=== PATIENT | male | born 1975 | race Caucasian/White ===

== ENCOUNTER 2018-05-20 18:57 | Observation (INO) ==
--- NOTE | 2018-05-20 19:31 | Emergency Department Note ---
Disposition Clinical Impression: Chest pain Qualifiers: Chest pain type: unspecified Qualified Code(s): R07.9 - Chest pain, unspecified Fatigue Qualifiers: Fatigue type: chronic, unspecified Qualified Code(s): R53.82 - Chronic fatigue, unspecified Disposition: Home, Self-Care Condition: Good Forms: ED Satisfaction Letter, Work/School Release Time of Disposition: 22:01 General Adult HPI - General Chief complaint: ED General Medical Stated complaint: Tired all the time / Frequent Urination / [place] Time Seen by Provider: 05/20/18 19:31 Source: patient Mode of arrival: ambulatory Limitations: no limitations Nursing Notes Reviewed: Yes Vital Signs Reviewed: Yes - History of Present Illness HPI Narrative: Male patient presenting complaints, complaining of increased fatigue. To the point where he swelling asleep while driving. Also increased urination. He denies any burning on urination or foul odor however he states that his pain multiple times throughout the day way more than what he used to. He also complains of a yellowish-white discharge from his penis that happens only in the morning time. States he was diagnosed with prostatitis about a year ago and was not able to finish the antibiotic secondary to them being stolen. He denies any fevers or chills. Patient also reporting that he has a history of sleep apnea. He states he has been using his BiPAP machine and it was recently updated to a newer model however he has not had a repeat sleep test or his settings readjusted since 1989. Patient is an obese male. He states that he frequently is falling asleep and taking naps in a chair. The is at bedside states that he has shortness of breath when he sleeps and he is frequently having periods of apnea. Patient states that he has generally short of breath but does not report any overt shortness of breath at this time. He denies any coughs or colds. He also reports some episodic left-sided chest pain. He states this happens frequently. He is not having any chest pain at this time but he reports his last episode was while he was in the waiting room. He describes it as a fleeting pain in the left side of his chest. He has not tried any medication to make this better. Pain Scale: 0 - Related Data Home Medications Medication Instructions Recorded Confirmed ALPRAZolam [Xanax 1 MG Tablet] 1 mg PO PRN PRN 10/25/17 11/13/17 BuPROPion SR (12 HR) [Wellbutrin 100 mg PO DAILY 04/29/17 05/18/17 SR] FLUoxetine HCl [Prozac] 40 mg PO DAILY 04/29/17 05/18/17 Lisinopril-HCTZ 20-12.5 [Prinzide 1 each PO DAILY 05/08/17 05/18/17 20-12.5] Metoprolol [Lopressor] 100 mg PO DAILY 05/08/17 05/18/17 Previous Rx's Medication Instructions Recorded Ciprofloxacin [Cipro] 500 mg PO BID 21 Days #42 tablet 06/13/17 Allergies Allergy/AdvReac Type Severity Reaction Status Date / Time No Known Allergies Allergy Verified 06/13/17 12:16 All systems ED: reviewed and negative except as stated. Review of Systems: As Per HPI Constitutional: Denies: fever, chills Cardiovascular: Reports: chest pain (not at this time. Has had episodic pain in the left chest. Fleeting. ). Denies: syncope Respiratory: Reports: dyspnea (occasional). Denies: cough Gastrointestinal: Denies: abdominal pain, nausea, vomiting, diarrhea Genitourinary: Reports: urgency (increased), frequency (increased), discharge (first of the moring, yellowish white). Denies: dysuria, hematuria, testicular pain, testicular mass Musculoskeletal: Denies: back pain, neck pain Neurological: Denies: headache, weakness Endocrine: Reports: fatigue Past Medical History - Past Medical History Attestation: Yes The following information was validated with the patient. Source: patient Medical history: Reports: hypertension Psychiatric history: Reports: anxiety, depression - Social History Smoking Status: Current every day smoker Smokeless Tobacco Status: No Alcohol use: Reports: rarely Drug use: Reports: none Physical Exam - General Limitations: no limitations General appearance: alert, in no apparent distress - Head Head exam: atraumatic, normocephalic, normal inspection - Eye Eye exam: Present: normal appearance, PERRL, EOMI - ENT ENT exam: normal exam, normal oropharynx, mucous membranes moist - Neck Neck exam: Present: normal inspection, full ROM, trachea midline - Chest Chest inspection: Present: normal inspection, symmetric chest wall rise - Respiratory Respiratory exam: Present: normal lung sounds bilaterally. Absent: respiratory distress, accessory muscle use - Cardiovascular Cardiovascular exam: Present: regular rate, normal rhythm, normal heart sounds - Abdominal Exam Abdominal exam: Present: soft, Non-Tender. Absent: tenderness, distention, guarding, rebound, rigidity, organomegaly - Extremities Exam Extremities exam: Present: normal inspection, full ROM, normal capillary refill. Absent: tenderness, pedal edema - Back Exam Back exam: Present: normal inspection, full ROM. Absent: tenderness - Neurological Exam Neurological exam: Present: alert, oriented X3 - Psychiatric Psychiatric exam: Present: normal affect, normal mood - Skin Skin exam: Present: warm, dry, intact, normal color Course Course Narrative: Patient is an obese male presenting with occasional left-sided chest pain however his #1 complaint is this fatigue. He states he is frequently falling asleep. He is concerned because whenever he drives he is falling asleep. States this is happened twice today. He is mentating appropriately at this time. Patient's bedside figures to glucose was 104 and he reports he has been drinking several glasses of sweet tea within the past 2 hours. He is also reporting increased urination. We did send for a dirty and clean urine secondary to him stating he has a renal discharge. He does report a fleeting left-sided chest pain. He does have a history of smoking and is obese. There is a family history of heart attacks after the age of 55. We will get a basic lab workup on the patient and a chest x-ray. We will provide him with aspirin at this time. He states he does take lisinopril and has been taking this as he is supposed to recently however he reports that he reveals flea has forgotten several doses. - Reevaluation(s) Reevaluation #1: Patient's vitals are stable. He does have some T-wave inversion in leads 23 and aVF. As well as the V4 V5 and V6. Patient's troponin is negative. He does have a history of high cholesterol heart problems in his family his BMI is greater than 30 any is a smoker. He has a heart score of 4. Patient has been complaining of increased fatigue. We have no previous EKG to compare to. We will admit patient to the hospital for further cardiac evaluation. After discussing further with the patient he is now endorsing exertional symptoms of the chest pain. Patient's chest x-ray was read as a possible infiltrate. However upon evaluating this with the previous chest x-rays and patient's clinical symptoms we will withhold treatment for pneumonia at this time. He does not have a cough. He does report shortness of breath but this is been an ongoing process for several months not an acute process. His lung sounds are clear on evaluation. Time: 21:43 - Consultations Consultation #1: Dr Post accepted Pt in stable condition. Time: 22:09 Vital Signs Temperature 98.0 F 05/20/18 19:01 Pulse Rate 88 05/20/18 19:01 Respiratory Rate 20 05/20/18 19:01 Blood Pressure 166/106 05/20/18 19:01 O2 Sat by Pulse Oximetry 96 05/20/18 19:01 Temperature 98.0 F 05/20/18 19:49 Pulse Rate 88 05/20/18 21:11 Respiratory Rate 24 05/20/18 21:11 Blood Pressure 146/82 05/20/18 21:11 O2 Sat by Pulse Oximetry 97 05/20/18 21:11 Oxygen Delivery Oxygen Delivery Room Air Medical Decision Making - Medical Records Medical records reviewed: Yes I reviewed the patient's medical records. - Lab Data Lab results reviewed: Yes I reviewed the patient's lab results. Result diagrams: 05/20/18 20:08 05/20/18 20:08 Lab Results 05/20/18 05/20/18 05/20/18 Range/Units 19:31 20:08 20:08 WBC 12.3 H (4.3-11.1) K/mcL RBC 5.36 (4.19-5.50) M/mcL Hgb 15.0 (12.9-16.9) g/dL Hct 45.7 (37.5-50.1) % MCV 85.3 (83.0-100.0) fL MCH 28.0 (28.0-33.3) pg MCHC 32.8 (31.6-35.5) g/dL RDW 14.3 (11.5-14.5) % Plt Count 219 (140-400) K/mcL MPV 11.3 (9.4-12.4) fL Immature Gran % 0.8 (0-4) % Seg Neutrophils % 56.1 % Lymphocytes % 32.9 % Monocytes % 7.8 % Eosinophils % 1.5 % Basophils % 0.9 % Neutrophils # 6.9 (1.6-8.9) K/mcL Lymphocytes # 4.0 (0.6-4.6) K/mcL Monocytes # 1.0 (0.0-1.3) K/mcL Eosinophils # 0.2 (0.0-0.6) K/mcL Basophils # 0.1 (0.0-0.2) K/mcL D-Dimer 232 (0-500) ng/mLFEU Sodium (136-145) mEq/L Potassium (3.5-5.1) mEq/L Chloride (98-107) mEq/L Carbon Dioxide (23-29) mEq/L BUN (6-20) mg/dL Creatinine (0.70-1.30) mg/dL Est GFR ( Amer) (> 60) Est GFR (Non-Af Amer) (> 60) BUN/Creatinine Ratio (6-26) Glucose (70-105) mg/dL POC Glucose 104 H (70-99) mg/dL Calculated Osmolality (280-300) Calcium (8.6-10.3) mg/dL Troponin I (< 0.04) ng/mL Urine Color (Yellow) Urine Clarity (Clear) Urine pH (5.0-8.0) pH Units Ur Specific [place] (1.010-1.025) Urine Protein (Neg-Trace) mg/dL Urine Glucose (UA) (Normal) mg/dL Urine Ketones (Negative) mg/dL Urine Blood (Negative) Urine Nitrite (Negative) Urine Bilirubin (Negative) Urine Urobilinogen (Normal) mg/dL Ur Leukocyte Esterase (Negative) Urine Microscopic RBC (0-3) per hpf Urine Microscopic WBC (0-3) per hpf Ur Squamous Epith Cells (None-Few) per lpf Urine Bacteria (None-Few) per hpf Hyaline Casts (None-Few) per lpf Ur Culture Indicated? (NO) 05/20/18 05/20/18 Range/Units 20:08 20:08 WBC (4.3-11.1) K/mcL RBC (4.19-5.50) M/mcL Hgb (12.9-16.9) g/dL Hct (37.5-50.1) % MCV (83.0-100.0) fL MCH (28.0-33.3) pg MCHC (31.6-35.5) g/dL RDW (11.5-14.5) % Plt Count (140-400) K/mcL MPV (9.4-12.4) fL Immature Gran % (0-4) % Seg Neutrophils % % Lymphocytes % % Monocytes % % Eosinophils % % Basophils % % Neutrophils # (1.6-8.9) K/mcL Lymphocytes # (0.6-4.6) K/mcL Monocytes # (0.0-1.3) K/mcL Eosinophils # (0.0-0.6) K/mcL Basophils # (0.0-0.2) K/mcL D-Dimer (0-500) ng/mLFEU Sodium 135 L (136-145) mEq/L Potassium 4.0 (3.5-5.1) mEq/L Chloride 100 (98-107) mEq/L Carbon Dioxide 29 (23-29) mEq/L BUN 15 (6-20) mg/dL Creatinine 0.90 (0.70-1.30) mg/dL Est GFR ( Amer) > 60 (> 60) Est GFR (Non-Af Amer) > 60 (> 60) BUN/Creatinine Ratio 17 (6-26) Glucose 105 (70-105) mg/dL POC Glucose (70-99) mg/dL Calculated Osmolality 281 (280-300) Calcium 9.0 (8.6-10.3) mg/dL Troponin I < 0.03 (< 0.04) ng/mL Urine Color Yellow (Yellow) Urine Clarity Clear (Clear) Urine pH 6.5 (5.0-8.0) pH Units Ur Specific [place] 1.023 (1.010-1.025) Urine Protein Negative (Neg-Trace) mg/dL Urine Glucose (UA) Normal (Normal) mg/dL Urine Ketones Negative (Negative) mg/dL Urine Blood Negative (Negative) Urine Nitrite Negative (Negative) Urine Bilirubin Negative (Negative) Urine Urobilinogen Normal (Normal) mg/dL Ur Leukocyte Esterase Moderate H (Negative) Urine Microscopic RBC 0-3 (0-3) per hpf Urine Microscopic WBC 15-30 H (0-3) per hpf Ur Squamous Epith Cells Many H (None-Few) per lpf Urine Bacteria Few (None-Few) per hpf Hyaline Casts None Seen (None-Few) per lpf Ur Culture Indicated? NO. A (NO) - Radiology Data Radiology results reviewed: Yes I reviewed the patient's radiology results. Chest X-Ray 05/20/18 19:52 IMPRESSION: Middle lobe consolidation may reflect pneumonia. RECOMMENDATION: Radiographic follow-up after treatment and acute symptom resolution. D/ / Joe Shea MD / Joe Shea MD Interpreting Provider: Joe Shea MD When looking at the x-ray compared to previous x-ray patient clinical symptoms do have shortness of breath however there is no cough no productivity. His shortness of breath has been ongoing for several months no acute shortness of breath noted. We will withhold treatment for the possible pneumonia that Was read by the radiologist. - EKG Data EKG #1 EKG attestation: Yes I reviewed and interpreted this EKG. EKG results narrative: Normal sinus rhythm at a rate 87. MN interval is 155. QRS duration is 85. QT is 366. QTC is 441. No signs of acute ischemia. However there are gross T- wave inversions throughout. No signs of a WPW or Brugada. Heart Score - Score History: Moderately Suspicious EKG: Non Specific repolarisation Disturbance Age: Less than 45 Risk Factors: Equal/Greater than 3 risk factor or history of atherosclerotic disease Troponin: Less than normal limit HEART Score Total: 4
--- NOTE | 2018-05-20 19:44 | Emergency Department Note ---
Disposition Clinical Impression: Chest pain, Fatigue Disposition: Home, Self-Care Condition: Good General Adult HPI - General Chief complaint: ED General Medical Stated complaint: Tired all the time / Frequent Urination / [place] Time Seen by Provider: 05/20/18 19:31 - History of Present Illness Pain Scale: 0 - Related Data Home Medications Medication Instructions Recorded Confirmed ALPRAZolam [Xanax 1 MG Tablet] 1 mg PO PRN PRN 04/29/17 05/20/18 BuPROPion SR (12 HR) [Wellbutrin 200 mg PO DAILY 04/29/17 05/18/17 SR] FLUoxetine HCl [Prozac] 40 mg PO DAILY 04/29/17 05/20/18 RX: Lisinopril [Zestril] 20 mg PO BID 05/20/18 Allergies Allergy/AdvReac Type Severity Reaction Status Date / Time No Known Allergies Allergy Verified 06/13/17 12:16 Past Medical History - Past Medical History Medical history: Reports: hypertension Psychiatric history: Reports: anxiety, depression - Social History Smoking Status: Current every day smoker Smokeless Tobacco Status: No Alcohol use: Reports: rarely Drug use: Reports: none Course Vital Signs Temperature 98.0 F 05/20/18 19:01 Pulse Rate 88 05/20/18 19:01 Respiratory Rate 20 05/20/18 19:01 Blood Pressure 166/106 05/20/18 19:01 O2 Sat by Pulse Oximetry 96 05/20/18 19:01 Temperature 98 F 05/21/18 03:14 Pulse Rate 70 05/21/18 03:14 Respiratory Rate 20 05/21/18 04:28 Blood Pressure 130/84 05/21/18 03:14 O2 Sat by Pulse Oximetry 96 05/21/18 04:28 Oxygen Delivery Oxygen Delivery Room Air Medical Decision Making - Lab Data Result diagrams: 05/21/18 03:24 05/21/18 03:24 Lab Results 05/20/18 05/20/18 05/20/18 Range/Units 19:31 20:08 20:08 WBC 12.3 H (4.3-11.1) K/mcL RBC 5.36 (4.19-5.50) M/mcL Hgb 15.0 (12.9-16.9) g/dL Hct 45.7 (37.5-50.1) % MCV 85.3 (83.0-100.0) fL MCH 28.0 (28.0-33.3) pg MCHC 32.8 (31.6-35.5) g/dL RDW 14.3 (11.5-14.5) % Plt Count 219 (140-400) K/mcL MPV 11.3 (9.4-12.4) fL Immature Gran % 0.8 (0-4) % Seg Neutrophils % 56.1 % Lymphocytes % 32.9 % Monocytes % 7.8 % Eosinophils % 1.5 % Basophils % 0.9 % Neutrophils # 6.9 (1.6-8.9) K/mcL Lymphocytes # 4.0 (0.6-4.6) K/mcL Monocytes # 1.0 (0.0-1.3) K/mcL Eosinophils # 0.2 (0.0-0.6) K/mcL Basophils # 0.1 (0.0-0.2) K/mcL D-Dimer 232 (0-500) ng/mLFEU Sodium (136-145) mEq/L Potassium (3.5-5.1) mEq/L Chloride (98-107) mEq/L Carbon Dioxide (23-29) mEq/L BUN (6-20) mg/dL Creatinine (0.70-1.30) mg/dL Est GFR ( Amer) (> 60) Est GFR (Non-Af Amer) (> 60) BUN/Creatinine Ratio (6-26) Glucose (70-105) mg/dL POC Glucose 104 H (70-99) mg/dL Calculated Osmolality (280-300) Calcium (8.6-10.3) mg/dL Troponin I (< 0.04) ng/mL Urine Color (Yellow) Urine Clarity (Clear) Urine pH (5.0-8.0) pH Units Ur Specific [place] (1.010-1.025) Urine Protein (Neg-Trace) mg/dL Urine Glucose (UA) (Normal) mg/dL Urine Ketones (Negative) mg/dL Urine Blood (Negative) Urine Nitrite (Negative) Urine Bilirubin (Negative) Urine Urobilinogen (Normal) mg/dL Ur Leukocyte Esterase (Negative) Urine Microscopic RBC (0-3) per hpf Urine Microscopic WBC (0-3) per hpf Ur Squamous Epith Cells (None-Few) per lpf Urine Bacteria (None-Few) per hpf Hyaline Casts (None-Few) per lpf Ur Culture Indicated? (NO) Ur C. trach DNA (PCR) (Not Detect) U N.gonorrhoeae DNA PCR (Not Detect) 05/20/18 05/20/18 05/20/18 Range/Units 20:08 20:08 20:08 WBC (4.3-11.1) K/mcL RBC (4.19-5.50) M/mcL Hgb (12.9-16.9) g/dL Hct (37.5-50.1) % MCV (83.0-100.0) fL MCH (28.0-33.3) pg MCHC (31.6-35.5) g/dL RDW (11.5-14.5) % Plt Count (140-400) K/mcL MPV (9.4-12.4) fL Immature Gran % (0-4) % Seg Neutrophils % % Lymphocytes % % Monocytes % % Eosinophils % % Basophils % % Neutrophils # (1.6-8.9) K/mcL Lymphocytes # (0.6-4.6) K/mcL Monocytes # (0.0-1.3) K/mcL Eosinophils # (0.0-0.6) K/mcL Basophils # (0.0-0.2) K/mcL D-Dimer (0-500) ng/mLFEU Sodium 135 L (136-145) mEq/L Potassium 4.0 (3.5-5.1) mEq/L Chloride 100 (98-107) mEq/L Carbon Dioxide 29 (23-29) mEq/L BUN 15 (6-20) mg/dL Creatinine 0.90 (0.70-1.30) mg/dL Est GFR ( Amer) > 60 (> 60) Est GFR (Non-Af Amer) > 60 (> 60) BUN/Creatinine Ratio 17 (6-26) Glucose 105 (70-105) mg/dL POC Glucose (70-99) mg/dL Calculated Osmolality 281 (280-300) Calcium 9.0 (8.6-10.3) mg/dL Troponin I < 0.03 (< 0.04) ng/mL Urine Color Yellow (Yellow) Urine Clarity Clear (Clear) Urine pH 6.5 (5.0-8.0) pH Units Ur Specific [place] 1.023 (1.010-1.025) Urine Protein Negative (Neg-Trace) mg/dL Urine Glucose (UA) Normal (Normal) mg/dL Urine Ketones Negative (Negative) mg/dL Urine Blood Negative (Negative) Urine Nitrite Negative (Negative) Urine Bilirubin Negative (Negative) Urine Urobilinogen Normal (Normal) mg/dL Ur Leukocyte Esterase Moderate H (Negative) Urine Microscopic RBC 0-3 (0-3) per hpf Urine Microscopic WBC 15-30 H (0-3) per hpf Ur Squamous Epith Cells Many H (None-Few) per lpf Urine Bacteria Few (None-Few) per hpf Hyaline Casts None Seen (None-Few) per lpf Ur Culture Indicated? NO. A (NO) Ur C. trach DNA (PCR) NOT DETECTED (Not Detect) U N.gonorrhoeae DNA PCR NOT DETECTED (Not Detect) Attestation Statement - Attestation Attestation: Resident Attestation: I examined this patient and my medical decision making was reviewed with the Resident Physician. I agree with the documented findings, disposition and treatment plan as described except to the extent set forth below. We independently had [id number] contact with the patient. Patient seen with Dr. Ralph. Please see her note for further details and disposition. 42-year-old female with significant sleep apnea and CPAP at home presented today for evaluation of chest pain as well as weakness and fatigue. Patient has been falling asleep at home and while driving despite sleeping well at home. Patient has been experiencing left-sided chest pain that radiates to the back. Patient was initially seen several weeks ago and diagnosed with musculoskeletal etiology. Patient's pain is worse with exertion. Patient has takes breaks secondary to alleviate the pain. Multiple risk factors including strong family history, smoking, hypertension, obesity. Regular rate and rhythm, clear to auscultation bilaterally, abdomen soft nontender to palpation without guarding or rebound. EKG shows significant changes including mild depressions inferiorly as well as T-wave inversions inferior and precordial lead. Patient not having active chest pain. Aspirin given. Patient will be admitted for further evaluation of his chest pain. Chest x-ray shows concern for a possible middle lobe pneumonia. Patient does not clinically fit this picture he has not had significant cough or sputum production. We will discuss this with the hospitalist.
[2018-05-20] MEDS ORDERED: Aspirin 81 MG TAB.CHEW PO ONE (19:51)
[2018-05-20 20:40] LABS: Basophils # 0.1 K/mcL (0.0-0.2); Basophils % 0.9 %; Bilirubin,Urine Negative (Negative); Blood,Urine Negative (Negative); Clarity,Urine Clear (Clear); Color,Urine Yellow (Yellow); Eosinophils # 0.2 K/mcL (0.0-0.6); Eosinophils % 1.5 %; Glucose,Urine (UA) Normal (Normal); Hematocrit 45.7 % (37.5-50.1); Immature Granulocytes % 0.8 % (0-4); Ketones,Urine Negative (Negative); Leukocyte Esterase,Urine Moderate (Negative); Lymphocytes % 32.9 %; Mean Corpuscular HGB Conc 32.8 g/dL (31.6-35.5); Mean Corpuscular Volume 85.3 fL (83.0-100.0); Mean Platelet Volume 11.3 fL (9.4-12.4); Monocytes % 7.8 %; Neutrophils # 6.9 K/mcL (1.6-8.9); Nitrite,Urine Negative (Negative); PH,Urine 6.5 pH Units (5.0-8.0); Platelet Count 219 K/mcL (140-400); Protein,Urine Negative (Neg-Trace); Red Blood Count 5.36 M/mcL (4.19-5.50); Red Cell Distribution Width 14.3 % (11.5-14.5); Segmented Neutrophils % 56.1 %; Specific Gravity,Urine 1.023 (1.010-1.025); Urobilinogen,Urine Normal (Normal)
[2018-05-20 20:51] LABS: Hyaline Casts,Urine None Seen per lpf (None-Few); RBC,Urine 0-3 per hpf (0-3); Squamous Epithelial Cell,Urine Many per lpf (None-Few)
[2018-05-20 21:00] LABS: BUN/Creatinine Ratio 17 (6-26); Blood Urea Nitrogen 15 mg/dL (6-20); Carbon Dioxide 29 mEq/L (23-29); Chloride 100 mEq/L (98-107); Glucose 105 mg/dL (70-105); Osmolality,Calculated 281 (280-300); Sodium 135 mEq/L (136-145); eGFR For Non-African Americans > 60 (> 60)
[2018-05-20 21:01] LABS: Troponin I < 0.03 ng/mL (< 0.04)
[2018-05-20 21:24] LABS: WBC,Urine 15-30 per hpf (0-3)
[2018-05-20 21:25] LABS: Bacteria,Urine Few per hpf (None-Few)
[2018-05-20 22:12] LABS: Chlamydia Trachomatis DNA Ur NOT DETECTED (Not Detect)
--- NOTE | 2018-05-20 23:03 | Internal Med History&Physical ---
Date of Encounter: 05/20/18 Time of Encounter: 23:01 Internal Medicine - H&P: HPI Chief complaint: Fatigue Admitted From: Emergency Dept Plans for Post Hospital Care: Home History of present illness: Mr. Mckinley is a 42 year old male with history of hypertension, sleep apnea on CPAP, obesity, chronic smoking history history of depression who presents with generalized fatigue. He has a constellation of complaints as well including increased urination. He also says there is yellowish-white discharge from his penis in the morning. Says he was diagnosed with prostatitis by someone in the outpatient setting and finished abx and all his other symptoms regarding dysuria, burning sensation had resolved and the only thing left is the discharge. He was ruled out for STDs. No fever, chills, dysuria, or burning sensation with urination. He is sleepy all day but is compliant with bipapa for his ANOOP. Has not had a sleep study since 2001. He reports shortness of breath. No cough. Reports episodic left sided chest pain. Mostly with exertion. Happens about once a week and mostly when he is at work exerting himself. He had one earlier in the ED waiting room but went away on its own. EKG done in [facility] ED showed T wave inversions in leads II, II, aVF, V4, 5, and 6. Trops were negative. CXR showed possible infiltrate but those were present on previous CXR. He does have shortness of breath at times but no cough and no fever. Labs showed mildly elevated wbc count. given patient's reported chest pain, EKG sloan es, and risk factors of smoking, obesity, HTN, and family history, it was decided that he gets admitted for further cardiac evaluation. Denies headache, fever, chills, nausea, vomiting, blurry vision, abdominal pain, diarrhea, constipation, or neurological symptoms. Past Med Surg Social Fam HX - Past Medical History Medical history: hypertension Additional medical history: sleep apnea bi pap Psychiatric history: anxiety, depression - Past Surgical History Additional surgical history: umbilical hernia repair - Social History Smoking Status: Current every day smoker Smokeless Tobacco Status: No Alcohol use: rarely Drug use: none - Family History Brother Hx Family Cardiac Disorders: Yes (aortic dissection) Hx Family Endocrine Disorder: Yes (DM) Internal Medicine - H&P: Meds ALPRAZolam [Xanax 1 MG Tablet] 1 mg PO PRN PRN 04/29/17 [History] BuPROPion SR (12 HR) [Wellbutrin SR] 200 mg PO DAILY 04/29/17 [History] FLUoxetine HCl [Prozac] 40 mg PO DAILY 04/29/17 [History] Lisinopril [Zestril] 20 mg PO BID 05/20/18 [History] Allergy/AdvReac Type Severity Reaction Status Date / Time No Known Allergies Allergy Verified 06/13/17 12:16 All Systems PM: A 10-system review of systems was performed and is negative for pertinent findings except as documented above in the HPI. Review of systems: All systems reviewed are negative except as mentioned above - Constitutional Vitals: Temp Pulse Resp BP Pulse Ox 98.0 F 73 20 131/81 98 05/20/18 19:49 05/20/18 22:00 05/20/18 22:59 05/20/18 22:59 05/20/18 22:00 Exam: GEN: NAD HEENT: AT, NC, No cyanosis, oral mucosa is moist, No JVD Lymphatics: No lymphadenoapthy Eyes: Extrocular muscles intact, anicteric CVS:RRR. S1, S2, No m/r/g RESP: CTAB ABD: Soft, NT, ND, +BS EXT: No edema, No rashes, 2+ DP NEURO: Nonfocal, CN II-XII intact, No focal motor or sensory deficits Psych: Cooperative, Not anxious or depressed Internal Med - H&P Results - Labs CBC & Chem 7: 05/20/18 20:08 05/20/18 20:08 Labs: Short CBC 05/20/18 Range/Units 20:08 WBC 12.3 H (4.3-11.1) K/mcL Hgb 15.0 (12.9-16.9) g/dL Hct 45.7 (37.5-50.1) % Plt Count 219 (140-400) K/mcL Neutrophils # 6.9 (1.6-8.9) K/mcL BMP 05/20/18 20:08 Sodium 135 L Potassium 4.0 Chloride 100 Carbon Dioxide 29 BUN 15 Creatinine 0.90 Glucose 105 Calcium 9.0 Cardiac Enzymes 05/20/18 Range/Units 20:08 Troponin I < 0.03 (< 0.04) ng/mL Urine 05/20/18 Range/Units 20:08 Urine Color Yellow (Yellow) Urine Clarity Clear (Clear) Urine pH 6.5 (5.0-8.0) pH Units Ur Specific [place] 1.023 (1.010-1.025) Urine Protein Negative (Neg-Trace) mg/dL Urine Glucose (UA) Normal (Normal) mg/dL - Impressions ITS Impressions Chest X-Ray 05/20/18 19:52 IMPRESSION: Middle lobe consolidation may reflect pneumonia. RECOMMENDATION: Radiographic follow-up after treatment and acute symptom resolution. D/ / Joe Shea MD / Joe Shea MD Interpreting Provider: Joe Shea MD - Assessment and plan (1) Abnormal EKG Current Visit: Yes Status: Acute Assessment and plan: We will trend cardiac enzymes. We will put the patient on telemetry. Check an echocardiogram. We will have the patient undergo a stress test in the morning. May need a cardiology consult. Check lipid panel and A1c. (2) Chest pain Current Visit: Yes Status: Acute Assessment and plan: Even aspirin in the ED. We will check lipid panel and A1c. Assessment and plan as above. Qualifiers: Chest pain type: unspecified Qualified Code(s): R07.9 - Chest pain, unspecified (3) Pneumonia Current Visit: Yes Status: Acute Assessment and plan: Only symptoms are shortness of breath and an infiltrate on chest x-ray. Does have mild elevated white count. Not very convincing convincing but given her overall presentation we will put him on oral Levaquin and possibly chemotherapy for from 5 days. We will check urine strep and Legionella. Check respiratory panel. Qualifiers: Pneumonia type: due to unspecified organism Laterality: unspecified laterality Lung location: unspecified part of lung Qualified Code(s): J18.9 - Pneumonia, unspecified organism (4) Fatigue Current Visit: Yes Status: Acute Assessment and plan: Unclear etiology. We will check TSH. Patient may need to have another sleep study and outpatient setting. His last one was in 2001. We will rule out any cardiac related issues causing this. Possibly some pneumonia may be the cause as well. Qualifiers: Fatigue type: unspecified Qualified Code(s): R53.83 - Other fatigue (5) Hypertension Current Visit: Yes Status: Acute Assessment and plan: Resume home meds Qualifiers: Hypertension type: essential hypertension Qualified Code(s): I10 - Essential (primary) hypertension (6) Depression Current Visit: Yes Status: Acute Assessment and plan: Resume home meds Qualifiers: Depression Type: unspecified Qualified Code(s): F32.9 - Major depressive disorder, single episode, unspecified (7) ANOOP (obstructive sleep apnea) Current Visit: Yes Status: Acute Assessment and plan: Continue with home BiPAP. (8) Elevated glucose Current Visit: Yes Status: Acute Assessment and plan: Check A1c. Glucose 104 and BMP. (9) DVT prophylaxis Current Visit: Yes Status: Acute Assessment and plan: Heparin subcutaneous - Time Spent With Patient Total time spent is greater than 50% in coordination of care (as documented) at patient's floor/unit and/or counseling patient:
[2018-05-20] MEDS ORDERED: ALPRAZolam 1 MG TABLET PO PRN (23:23)
[2018-05-21] MEDS: levoFLOXacin 750 MG TABLET PO SCH ×2 (00:30→09:49)
[2018-05-21 03:51] LABS: Basophils # 0.1 K/mcL (0.0-0.2); Basophils % 0.9 %; Eosinophils # 0.2 K/mcL (0.0-0.6); Eosinophils % 1.6 %; Hematocrit 44.8 % (37.5-50.1); Hemoglobin 14.2 g/dL (12.9-16.9); Immature Granulocytes % 0.9 % (0-4); Lymphocytes # 4.1 K/mcL (0.6-4.6); Lymphocytes % 37.1 %; Mean Corpuscular HGB Conc 31.7 g/dL (31.6-35.5); Mean Corpuscular Hemoglobin 27.5 pg (28.0-33.3); Mean Corpuscular Volume 86.7 fL (83.0-100.0); Mean Platelet Volume 11.3 fL (9.4-12.4); Monocytes % 9.5 %; Neutrophils # 5.5 K/mcL (1.6-8.9); Platelet Count 187 K/mcL (140-400); Red Blood Count 5.17 M/mcL (4.19-5.50); Red Cell Distribution Width 14.1 % (11.5-14.5)
[2018-05-21 04:20] LABS: BUN/Creatinine Ratio 16 (6-26); Blood Urea Nitrogen 15 mg/dL (6-20); Calcium 8.5 mg/dL (8.6-10.3); Carbon Dioxide 29 mEq/L (23-29); Chloride 102 mEq/L (98-107); Cholesterol 104 mg/dL (< 200); Glucose 123 mg/dL (70-105); HDL Cholesterol 33 mg/dL (40-59); Magnesium 2.2 mg/dL (1.6-2.6); Osmolality,Calculated 286 (280-300); Potassium 3.6 mEq/L (3.5-5.1); Sodium 137 mEq/L (136-145); Triglycerides 162 mg/dL (< 150); eGFR For Non-African Americans > 60 (> 60)
[2018-05-21 04:21] LABS: Chol/HDL Ratio 3.2 (0-4.9); LDL Cholesterol,Calculated 39 mg/dL (0-99)
[2018-05-21 04:29] LABS: Thyroid Stimulating Hormone 1.403 mcIU/mL (0.340-5.600)
[2018-05-21] MEDS ORDERED: Regadenoson 0.4 MG/5 ML SYRINGE IVP ONE (05:39)
[2018-05-21 08:53] LABS: Estimated Average Glucose 148 mg/dl; Hemoglobin A1C 6.8 %
[2018-05-21] MEDS ORDERED: Perflutren Lipid Microsphere 1.3 ML in 0.9 % Sodium Chloride 8.7 ML IVP ONE (09:11)
[2018-05-21] MEDS: FLUoxetine 20 MG CAPSULE PO SCH (09:49)
[2018-05-21] MEDS: Nicotine 21 MG PATCH.TD24 TD SCH (09:49)
[2018-05-21] MEDS: Lisinopril 20 MG TABLET PO SCH ×2 (11:25→20:33)
[2018-05-21] MEDS: BuPROPion SR (12 HR) 100 MG TABLET PO SCH (11:25)
--- NOTE | 2018-05-21 12:02 | Internal Med Progress Note ---
Hospitalist Progress Note - Encounter Date of Encounter: 05/21/18 Time of Encounter: 11:58 - Subjective Interval History: Mr. Mckinley is a 42 year old male with history of hypertension, sleep apnea on CPAP, obesity, chronic smoking history and depression pt presented to ER with shortness of breath, Left chest wall pain and generalized fatigue. EKG done in [facility] ED showed T wave inversions in leads II, II, aVF, V4, 5, and 6. Trops were negative. CXR showed possible infiltrate but those were present on previous CXR. He does have shortness of breath at times but no cough and no fever. Pt still c/o mild SOB and ACUNA. Denied any active CP now. - Exam Vitals: Temp Pulse Resp BP Pulse Ox 97.9 F 78 18 125/81 94 05/21/18 11:52 05/21/18 11:52 05/21/18 11:52 05/21/18 11:52 05/21/18 11:52 Exam: Gen: Alert, awake, Oriented to time,place and person Chest: Diminished breath sounds B/L, No wheezing, No crackles, No rales Heart: S1S2+ RRR No murmurs Abd: Soft, NT, BS +, No organomegaly Ext: trace edema, pulses are palpable, No calf tenderness Neuro : Benign findings Skin: No rash. - Assessment and Plan (1) Chest pain Current Visit: Yes Status: Acute Assessment and Plan: So far negative troponin with EKG changes , severe ANOOP and with multiple risk factors he is high risk for ACS scheduled for stress test -- needed 2 days test cont ASA + Nitro reviewed echocardiogram which showed preserved LVEF and indeterminate a diastolic dysfunction (2) Abnormal EKG Current Visit: Yes Status: Acute Assessment and Plan: Follow-up on stress test (3) Acute diastolic (congestive) heart failure Current Visit: Yes Status: Acute Assessment and Plan: He does have mild exacerbation started him on gentle IV diuresis on Lasix 20mg IV BID continue close monitoring reviewed echocardiogram which showed preserved LVEF and indeterminate a diastolic dysfunction (4) Fatigue Current Visit: Yes Status: Acute Assessment and Plan: Due to sleep apnea he did mention his CPAP at home might not be working well does need outpatient sleep study again (5) Hypertension Current Visit: Yes Status: Acute Assessment and Plan: Resume home meds (6) Depression Current Visit: Yes Status: Acute Assessment and Plan: Resume home meds (7) ANOOP (obstructive sleep apnea) Current Visit: Yes Status: Acute Assessment and Plan: on CPAP (8) DVT prophylaxis Current Visit: Yes Status: Acute Assessment and Plan: Heparin subcutaneous (9) Elevated glucose Current Visit: Yes Status: Acute Assessment and Plan: His Hba1C 6.8 diet modification and lifestyle changes (10) Pneumonia Current Visit: Yes Status: Acute Assessment and Plan: On prophylactic antibiotic levofloxacin - Time Spent with Patient Total time spent is greater than 50% in coordination of care (as documented) at patient's floor/unit and/or counseling patient: Internal Medicine: Result - Labs CBC & Chem 7: 05/21/18 03:24 05/21/18 03:24 Labs: Short CBC 05/20/18 05/21/18 Range/Units 20:08 03:24 WBC 12.3 H 10.9 (4.3-11.1) K/mcL Hgb 15.0 14.2 (12.9-16.9) g/dL Hct 45.7 44.8 (37.5-50.1) % Plt Count 219 187 (140-400) K/mcL Neutrophils # 6.9 5.5 (1.6-8.9) K/mcL BMP 05/20/18 05/21/18 20:08 03:24 Sodium 135 L 137 Potassium 4.0 3.6 Chloride 100 102 Carbon Dioxide 29 29 BUN 15 15 Creatinine 0.90 0.93 Glucose 105 123 H Calcium 9.0 8.5 L Cardiac Enzymes 05/20/18 05/21/18 Range/Units 20:08 03:24 Troponin I < 0.03 < 0.03 (< 0.04) ng/mL Urine 05/20/18 Range/Units 20:08 Urine Color Yellow (Yellow) Urine Clarity Clear (Clear) Urine pH 6.5 (5.0-8.0) pH Units Ur Specific [place] 1.023 (1.010-1.025) Urine Protein Negative (Neg-Trace) mg/dL Urine Glucose (UA) Normal (Normal) mg/dL - ABG Interpretation ABG results: PT/INR, D-dimer D-Dimer 232 ng/mLFEU (0-500) 05/20/18 20:08 - Impressions Impressions Chest X-Ray 05/20/18 19:52 IMPRESSION: Middle lobe consolidation may reflect pneumonia. RECOMMENDATION: Radiographic follow-up after treatment and acute symptom resolution. D/ / Joe Shea MD / Joe Shea MD Interpreting Provider: Joe Shea MD Echocardiogram 05/21/18 07:00 Impressions: LVEF 60%. Indeterminate diastolic function. Definity echo contrast was used. Normal right ventricular structure and function. No significant valvular dysfunction. No pulmonary hypertension based on TR signal obtained. Pleural effusion is not appreciated on this study. Left Ventricular Wall Motion: Rest Echo Findings All wall segments showed normal motion. Findings: Study Quality * Technically adequate exam. ECG Findings * Normal sinus rhythm. Left Ventricle * LVEF 60%. * Normal LV chamber size, wall thickness and function. * Indeterminate diastolic function. * Definity echo contrast was used. Right Ventricle * Normal right ventricular structure and function. Left Atrium * Normal left atrial size. Right Atrium * Normal right atrial size. Aortic Valve * Aortic valve not well visualized. * No aortic regurgitation. * No aortic stenosis. Mitral Valve * No mitral regurgitation. * No mitral stenosis. * Mitral valve not optimally visualized. Tricuspid Valve * Tricuspid valve not well visualized. * Trace tricuspid regurgitation. Pulmonic Valve * Pulmonic valve is not well visualized. * No pulmonic stenosis. * No pulmonic regurgitation. Pulmonary Artery * Pulmonary artery not well visualized. Aorta * Normally sized aortic root. Pericardium * There is no pericardial effusion present. Interatrial Septum * No evidence of PFO by color Doppler. IVC * The IVC is not well evaluated. Consult Discharge Plan - Plan Referrals: Anupam Paris MD [Primary Care Provider] - (Follow up appointment has been requested.) (1) Chest pain Qualifiers: Chest pain type: unspecified Qualified Code(s): R07.9 - Chest pain, unspecified (4) Fatigue Qualifiers: Fatigue type: unspecified Qualified Code(s): R53.83 - Other fatigue (5) Hypertension Qualifiers: Hypertension type: essential hypertension Qualified Code(s): I10 - Essential (primary) hypertension (6) Depression Qualifiers: Depression Type: unspecified Qualified Code(s): F32.9 - Major depressive disorder, single episode, unspecified (10) Pneumonia Qualifiers: Pneumonia type: due to unspecified organism Laterality: unspecified laterality Lung location: unspecified part of lung Qualified Code(s): J18.9 - Pneumonia, unspecified organism
[2018-05-21] MEDS: Furosemide 20 MG/2 ML VIAL IVP SCH ×2 (13:03→17:37)
[2018-05-22 05:46] LABS: BUN/Creatinine Ratio 17 (6-26); Blood Urea Nitrogen 15 mg/dL (6-20); Calcium 8.7 mg/dL (8.6-10.3); Carbon Dioxide 27 mEq/L (23-29); Chloride 104 mEq/L (98-107); Glucose 136 mg/dL (70-105); Magnesium 2.3 mg/dL (1.6-2.6); Osmolality,Calculated 287 (280-300); Potassium 4.3 mEq/L (3.5-5.1); Sodium 137 mEq/L (136-145); eGFR For Non-African Americans > 60 (> 60)
[2018-05-22 07:30] VITALS: BP 134/84
[2018-05-22] MEDS: Furosemide 20 MG/2 ML VIAL IVP SCH (09:53)
[2018-05-22] MEDS: FLUoxetine 20 MG CAPSULE PO SCH (09:54)
[2018-05-22] MEDS: Nicotine 21 MG PATCH.TD24 TD SCH (09:55)
[2018-05-22] MEDS: Lisinopril 20 MG TABLET PO SCH (09:55)
[2018-05-22] MEDS: levoFLOXacin 750 MG TABLET PO SCH (09:55)
[2018-05-22] MEDS: BuPROPion SR (12 HR) 100 MG TABLET PO SCH (09:55)
--- NOTE | 2018-05-22 12:11 | Discharge Summary ---
- NOTES TO OUTPATIENT PROVIDER Notes to Outpatient Provider: Presented with chest pain. ACS rule out. Negative stress test. Serial troponins negative. EKG with changes to V4, V5, V6, III, & aVF. D/w cardio, no further workup recommended. Orders not resulted at time of discharge: Pending orders 05/20/18 22:05 Culture,Urine [RM] Stat 05/20/18 23:25 Respiratory Infection Panel [MOLMIC] Routine 05/21/18 06:00 NM jose eduardo perf SPECT multi [NM] AM 0600 Date of Encounter: 05/22/18 Time of Encounter: 12:03 - Discharge Diagnosis (1) Chest pain Priority: Primary Status: Ruled-out Qualifiers: Chest pain type: unspecified Qualified Code(s): R07.9 - Chest pain, unspecified (2) Fatigue Priority: Secondary Status: Acute Qualifiers: Fatigue type: unspecified Qualified Code(s): R53.83 - Other fatigue (3) Abnormal EKG Priority: Secondary Status: Acute (4) Hypertension Priority: Secondary Status: Acute Qualifiers: Hypertension type: essential hypertension Qualified Code(s): I10 - Essential (primary) hypertension (5) Depression Priority: Secondary Status: Acute Qualifiers: Depression Type: unspecified Qualified Code(s): F32.9 - Major depressive disorder, single episode, unspecified (6) ANOOP (obstructive sleep apnea) Priority: Secondary Status: Acute (7) DVT prophylaxis Priority: Secondary Status: Acute (8) Elevated glucose Priority: Secondary Status: Acute (9) Pneumonia Priority: Secondary Status: Acute Assessment and Plan: Continue Levaquin 4 days at DC Qualifiers: Pneumonia type: due to unspecified organism Laterality: unspecified laterality Lung location: unspecified part of lung Qualified Code(s): J18.9 - Pneumonia, unspecified organism (10) Acute diastolic (congestive) heart failure Priority: Secondary Status: Acute Hospital course: Mr. Mckinley is a 42 year old male who presented with left-sided chest pain and generalized fatigue. There is some concerns about T-wave inversions in lead 2- 3, aVF, V4, V5, V6. Briefly discussed with cardiology who reveals that T-wave inversions could because by the uncontrolled hypertension. He has had a negative workup including stress test which was nondiagnostic for ischemia, troponin is negative. The patient is chest pain-free and resting comfortably at this time. No events noted on telemetry. He has been instructed to follow-up with PCP within 1 week of discharge. Chest x-ray did demonstrate a possible infiltrate but these were also present on previous CXR. However we will treat with Levaquin for 4 additional days. Discharge discussed with: patient, nurse - Time Spent with Patient Total time spent providing and/or coordinating discharge services: Less than 30 minutes - Discharge Medications Prescriptions: levoFLOXacin [Levaquin] 500 mg PO DAILY 4 Days #4 tablet Home Medications: ALPRAZolam [Xanax 1 MG Tablet] 1 mg PO PRN PRN 04/29/17 [History] BuPROPion SR (12 HR) [Wellbutrin SR] 200 mg PO DAILY 04/29/17 [History] FLUoxetine HCl [Prozac] 40 mg PO DAILY 04/29/17 [History] Lisinopril [Zestril] 20 mg PO BID 05/20/18 [History] levoFLOXacin [Levaquin] 500 mg PO DAILY 4 Days #4 tablet 05/22/18 [Rx] Allergies/Adverse Reactions: Allergy/AdvReac Type Severity Reaction Status Date / Time No Known Allergies Allergy Verified 06/13/17 12:16 Date of admission: 05/20/18 22:27 Primary care physician: Anupam Paris MD Consults: 05/21/18 00:54 Consult to Respiratory Therapy [CONS] Routine Reason for Consult: bipap Call Completed: No Discharging clinician: Efrain Conley Anticipated date of discharge: 05/22/18 - Constitutional Vitals: Temp Pulse Resp BP Pulse Ox 97.6 F 78 18 134/84 99 05/22/18 07:29 05/22/18 07:29 05/22/18 07:29 05/22/18 07:29 05/22/18 07:29 General appearance: Present: A&O X 3 Exam: see exam - Head Head exam: Present: atraumatic, normocephalic - Eye Eye exam: Present: PERRL, conjuntiva pink, sclera anicteric Pupils: Present: PERRL - Neck Neck exam general surgery: Present: supple, trachea midline. Absent: lymphadenopathy - Respiratory Respiratory exam: Present: CTAB. Absent: accessory muscle use, rales, rhonchi, wheezes - Cardiovascular Cardiovascular exam: Present: RRR, +S1, +S2. Absent: diastolic murmur, gallop, rubs, systolic murmur - GI/Abdominal GI/Abdominal exam: Present: normal bowel sounds, soft, no peritoneal signs. Absent: distended, tenderness - Extremities Exam Extremities exam: Present: warm, radial pulses palpable and symmetrical. Absent: calf tenderness, cyanotic, pedal edema - Neurological Exam Neurological exam: Present: CN II-XII intact, oriented X3, no focal deficits. Absent: pronater drift, facial droop, speech deficit - Skin Skin exam: Present: dry, intact - Patient Status Disposition: Home, Self-Care Condition: Good Overall status at discharge: patient is progressing back to baseline - Discharge Instructions Instructions: Heart Failure (DC), Chronic Hypertension (DC), Pneumonia (DC), Chest Pain (DC) Follow Up With: Anupam Paris MD [Primary Care Provider] - (Follow up appointment has been requested.) Ed Odonnell MD [Partnered Physician] - 06/10/18 11:15 am (Pulmonology consult for sleep study) - Diet and Activity Activity: increase activity as tolerated, resume usual activities as tolerated Diet: diabetic diet, low fat, low cholesterol, low salt diet
--- NOTE | 2018-05-23 08:46 | Electrocardiograph Report ---
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
--- NOTE | 2018-05-23 08:46 | Electrocardiograph Report ---
[address] [place], [place] [address] Test Date: 2018-05-20 Pat Name: Jorge Mckinley Department: [id number] Room: 3B48 Gender: M [employer] T[employer]: : 1975 Requested By: Missael Post Order Number: [id number] Reading MD: Gema Arzate Measurements Intervals [place] Rate: 87 P: 81 FL: 155 QRS: 81 QRSD: 85 T: -3 QT: 366 QTc: 441 Interpretive Statements Sinus rhythm Abnormal R-wave progression, early transition Nonspecific T abnormalities, lateral leads Electronically Signed On 05-23-2018 8:44:58 EST by Gema Arzate
== END 2018-05-22 13:57 | disposition home or self-care (01) ==
LOC: EMEROOARM 18:57 → 3BNU 18:57
PROVIDERS: ADMIT Pediatrics; ATTEND Pediatrics

== ENCOUNTER 2020-03-23 09:39 | Observation (INO) ==
[2020-03-23] MEDS ORDERED: Aspirin 81 MG TAB.CHEW PO ONE (09:41)
[2020-03-23] MEDS ORDERED: Isovue-370 500 ML BOTTLE IVP ONE ×2 (10:00→10:36)
[2020-03-23 10:24] LABS: Basophils # 0.1 K/mcL (0.0-0.2); Basophils % 0.6 %; Eosinophils # 0.1 K/mcL (0.0-0.6); Eosinophils % 0.7 %; Hematocrit 43.4 % (37.5-50.1); Hemoglobin 13.9 g/dL (12.9-16.9); Immature Granulocytes % 0.8 % (0-4); Lymphocytes # 3.6 K/mcL (0.6-4.6); Mean Corpuscular Hemoglobin 27.7 pg (28.0-33.3); Mean Corpuscular Volume 86.6 fL (83.0-100.0); Mean Platelet Volume 11.8 fL (9.4-12.4); Monocytes # 1.1 K/mcL (0.0-1.3); Monocytes % 7.6 %; Neutrophils # 9.8 K/mcL (1.6-8.9); Platelet Count 194 K/mcL (140-400); Red Blood Count 5.01 M/mcL (4.19-5.50); Red Cell Distribution Width 13.8 % (11.5-14.5); Segmented Neutrophils % 66.3 %; White Blood Count 14.8 K/mcL (4.3-11.1)
[2020-03-23 10:28] LABS: INR 1.2; Prothrombin Time 13.3 Seconds (9.4-12.1)
[2020-03-23 10:31] LABS: Activated Partial Thrombo Time 33.5 Seconds (26.0-36.0)
[2020-03-23 10:46] LABS: Alanine Aminotransferase 16 Units/L (7-52); Albumin 4.2 g/dL (3.5-5.7); Albumin/Globulin Ratio 1.4 (1.1-2.2); Alkaline Phosphatase 70 Units/L (34-104); Aspartate Amino Transferase 11 Units/L (13-39); BUN/Creatinine Ratio 14 (6-26); Bilirubin,Direct 0.1 mg/dL (0.0-0.2); Bilirubin,Indirect 0.6 mg/dL (0.0-1.0); Bilirubin,Total 0.7 mg/dL (0.3-1.0); Blood Urea Nitrogen 12 mg/dL (6-20); Calcium 9.3 mg/dL (8.6-10.3); Carbon Dioxide 30 mEq/L (23-29); Chloride 99 mEq/L (98-107); Glucose 162 mg/dL (70-105); Lipase 19 Units/L (11-82); Osmolality,Calculated 283 (280-300); Potassium 3.9 mEq/L (3.5-5.1); Sodium 135 mEq/L (136-145); Total Protein 7.2 g/dL (6.4-8.9); Troponin I < 0.03 ng/mL (< 0.04); eGFR For African Americans > 60 (> 60); eGFR For Non-African Americans > 60 (> 60)
[2020-03-23] MEDS ORDERED: Acetaminophen 325 MG TABLET PO PRN (12:31)
[2020-03-23] MEDS ORDERED: *HR* Promethazine 25 MG/ML VIAL IVP PRN (12:31)
[2020-03-23] MEDS ORDERED: Naloxone 0.4 MG/ML INJ IVP PRN (12:31)
[2020-03-23] MEDS ORDERED: Ondansetron 4 MG/2 ML VIAL IVP PRN (12:31)
[2020-03-23] MEDS ORDERED: MOM Conc 10 ML UD.LIQ PO PRN (12:31)
[2020-03-23] MEDS ORDERED: Mag Hydrox/Al Hydrox/Simeth 30 ML UDC PO PRN (12:31)
[2020-03-23] MEDS ORDERED: ALPRAZolam 1 MG TABLET PO PRN (12:34)
[2020-03-23] MEDS ORDERED: Dextrose Gel 15 GM/37.5 ML TUBE PO PRN ×2 (12:34)
[2020-03-23] MEDS ORDERED: D5% in Water 1,000 ML IVC PRN (12:34)
[2020-03-23] MEDS ORDERED: *HR* Dextrose 50 % in Water (Vial) 50 ML VIAL IVP PRN (12:34)
[2020-03-23] MEDS: Insulin LISPRO 300 UNITS/3 ML VIAL SQ SCH ×2 (16:21→20:03)
[2020-03-23] MEDS: *HR* Heparin 5,000 UNIT/ML VIAL SQ SCH (16:21)
[2020-03-23] MEDS: Furosemide 20 MG/2 ML VIAL IVP SCH ×2 (16:21→20:03)
[2020-03-23] MEDS: *HR* HYDROcodone/Acet 5/325 mg TABLET PO PRN (16:23)
[2020-03-23] MEDS ORDERED: Perflutren Lipid Microsphere 1.3 ML in 0.9 % Sodium Chloride 8.7 ML IVP PRN (16:24)
[2020-03-23] MEDS: cloNIDine HCL 0.1 MG TABLET PO SCH ×2 (17:03→20:14)
[2020-03-23] MEDS ORDERED: Nitroglycerin 0.4 MG TAB.SUBL SL PRN (18:40)
[2020-03-23] MEDS: *HR* HYDROmorphone (PF) 1 MG/ML SYRINGE IVP PRN (19:30)
[2020-03-23] MEDS: lisinopriL 20 MG TABLET PO SCH (20:14)
[2020-03-23] MEDS: Metoprolol XL (24 HR) Succ 50 MG TAB.ER.24H PO SCH (20:14)
[2020-03-24] MEDS ORDERED: Nicotine 21 MG PATCH.TD24 TD SCH (01:55)
[2020-03-24] MEDS: *HR* HYDROmorphone (PF) 1 MG/ML SYRINGE IVP PRN ×5 (02:09→22:38)
[2020-03-24 03:26] LABS: Basophils # 0.1 K/mcL (0.0-0.2); Basophils % 0.6 %; Eosinophils # 0.2 K/mcL (0.0-0.6); Eosinophils % 1.1 %; Immature Granulocytes % 0.7 % (0-4); Lymphocytes # 3.3 K/mcL (0.6-4.6); Lymphocytes % 24.4 %; Mean Corpuscular HGB Conc 31.7 g/dL (31.6-35.5); Mean Corpuscular Hemoglobin 27.8 pg (28.0-33.3); Mean Corpuscular Volume 87.6 fL (83.0-100.0); Mean Platelet Volume 11.9 fL (9.4-12.4); Monocytes # 1.3 K/mcL (0.0-1.3); Monocytes % 9.6 %; Neutrophils # 8.6 K/mcL (1.6-8.9); Platelet Count 170 K/mcL (140-400); Red Blood Count 4.68 M/mcL (4.19-5.50); Red Cell Distribution Width 13.8 % (11.5-14.5); Segmented Neutrophils % 63.6 %; White Blood Count 13.6 K/mcL (4.3-11.1)
[2020-03-24 03:42] LABS: BUN/Creatinine Ratio 20 (6-26); Blood Urea Nitrogen 15 mg/dL (6-20); Calcium 8.8 mg/dL (8.6-10.3); Carbon Dioxide 28 mEq/L (23-29); Chloride 100 mEq/L (98-107); Chol/HDL Ratio 2.9 (0-4.9); Cholesterol 82 mg/dL (< 200); Glucose 124 mg/dL (70-105); HDL Cholesterol 28 mg/dL (40-59); LDL Cholesterol,Calculated 37 mg/dL (< 100); Magnesium 1.9 mg/dL (1.6-2.6); Osmolality,Calculated 284 (280-300); Phosphorous 4.8 mg/dL (2.7-4.5); Potassium 3.7 mEq/L (3.5-5.1); Sodium 136 mEq/L (136-145); Triglycerides 83 mg/dL (< 150); eGFR For African Americans > 60 (> 60); eGFR For Non-African Americans > 60 (> 60)
[2020-03-24] MEDS: *HR* Heparin 5,000 UNIT/ML VIAL SQ SCH ×2 (05:32→17:25)
[2020-03-24] MEDS ORDERED: Regadenoson 0.4 MG/5 ML SYRINGE IVP ONE (06:30)
[2020-03-24] MEDS: Insulin LISPRO 300 UNITS/3 ML VIAL SQ SCH ×4 (07:45→22:15)
[2020-03-24] MEDS ORDERED: Metoprolol 100 MG TABLET PO SCH ×2 (09:00)
[2020-03-24] MEDS: Furosemide 20 MG/2 ML VIAL IVP SCH ×2 (10:39→22:16)
[2020-03-24] MEDS: cloNIDine HCL 0.1 MG TABLET PO SCH ×3 (10:40→22:19)
[2020-03-24] MEDS: lisinopriL 20 MG TABLET PO SCH ×2 (10:40→22:20)
[2020-03-24] MEDS: BuPROPion SR (12 HR) 100 MG TABLET PO SCH (10:40)
[2020-03-24] MEDS: Metoprolol XL (24 HR) Succ 50 MG TAB.ER.24H PO SCH ×2 (10:40→22:17)
[2020-03-24] MEDS: FLUoxetine 20 MG CAPSULE PO SCH (10:40)
[2020-03-24] MEDS: *HR* HYDROcodone/Acet 5/325 mg TABLET PO PRN (15:56)
[2020-03-25 04:52] LABS: Hematocrit 39.5 % (37.5-50.1); Hemoglobin 12.5 g/dL (12.9-16.9); Mean Corpuscular HGB Conc 31.6 g/dL (31.6-35.5); Mean Corpuscular Hemoglobin 27.7 pg (28.0-33.3); Mean Corpuscular Volume 87.6 fL (83.0-100.0); Mean Platelet Volume 11.8 fL (9.4-12.4); Platelet Count 153 K/mcL (140-400); Red Blood Count 4.51 M/mcL (4.19-5.50); Red Cell Distribution Width 13.7 % (11.5-14.5); White Blood Count 10.4 K/mcL (4.3-11.1)
[2020-03-25] MEDS: *HR* Heparin 5,000 UNIT/ML VIAL SQ SCH (04:52)
[2020-03-25] MEDS: *HR* HYDROcodone/Acet 5/325 mg TABLET PO PRN (04:52)
[2020-03-25 05:12] LABS: BUN/Creatinine Ratio 20 (6-26); Blood Urea Nitrogen 16 mg/dL (6-20); Calcium 8.1 mg/dL (8.6-10.3); Carbon Dioxide 29 mEq/L (23-29); Chloride 100 mEq/L (98-107); Glucose 132 mg/dL (70-105); Osmolality,Calculated 283 (280-300); Phosphorous 4.1 mg/dL (2.7-4.5); Potassium 3.8 mEq/L (3.5-5.1); Sodium 135 mEq/L (136-145); eGFR For African Americans > 60 (> 60); eGFR For Non-African Americans > 60 (> 60)
[2020-03-25 08:15] VITALS: BP 141/83
[2020-03-25] MEDS: Insulin LISPRO 300 UNITS/3 ML VIAL SQ SCH ×2 (08:17→11:55)
[2020-03-25] MEDS: BuPROPion SR (12 HR) 100 MG TABLET PO SCH (08:25)
[2020-03-25] MEDS: lisinopriL 20 MG TABLET PO SCH (08:25)
[2020-03-25] MEDS: Metoprolol XL (24 HR) Succ 50 MG TAB.ER.24H PO SCH (08:25)
[2020-03-25] MEDS: cloNIDine HCL 0.1 MG TABLET PO SCH (08:25)
[2020-03-25] MEDS: FLUoxetine 20 MG CAPSULE PO SCH (08:25)
[2020-03-25] MEDS: Furosemide 20 MG/2 ML VIAL IVP SCH (08:26)
[2020-03-25] MEDS ORDERED: FLUoxetine 20 MG CAPSULE PO SCH (09:00)
== END 2020-03-25 12:26 | disposition home or self-care (01) ==
LOC: 3BNU 09:39 → EMEROOARM 09:39 → 3BNU 14:59
PROVIDERS: ADMIT Internal Medicine; ATTEND Internal Medicine

== ENCOUNTER 2020-05-25 13:20 | Inpatient (IN) ==
[2020-05-25 14:06] LABS: Basophils # 0.1 K/mcL (0.0-0.2); Basophils % 0.4 %; Eosinophils # 0.1 K/mcL (0.0-0.6); Eosinophils % 0.2 %; Hematocrit 46.1 % (37.5-50.1); Immature Granulocytes % 1.2 % (0-4); Lymphocytes % 12.2 %; Mean Corpuscular HGB Conc 32.5 g/dL (31.6-35.5); Mean Corpuscular Hemoglobin 28.2 pg (28.0-33.3); Mean Corpuscular Volume 86.8 fL (83.0-100.0); Mean Platelet Volume 11.5 fL (9.4-12.4); Monocytes # 0.9 K/mcL (0.0-1.3); Monocytes % 3.6 %; Neutrophils # 20.6 K/mcL (1.6-8.9); Platelet Count 197 K/mcL (140-400); Red Blood Count 5.31 M/mcL (4.19-5.50); Red Cell Distribution Width 14.1 % (11.5-14.5); Segmented Neutrophils % 82.4 %
[2020-05-25] MEDS ORDERED: Isovue-370 500 ML BOTTLE IVP ONE ×2 (14:09→17:34)
[2020-05-25] MEDS ORDERED: 0.9 % Sodium Chloride 1,000 ML IVC ONE (14:09)
[2020-05-25 14:22] LABS: BUN/Creatinine Ratio 17 (6-26); Blood Urea Nitrogen 19 mg/dL (6-20); Carbon Dioxide 31 mEq/L (23-29); Chloride 94 mEq/L (98-107); Glucose 165 mg/dL (70-105); Osmolality,Calculated 286 (280-300); Potassium 3.8 mEq/L (3.5-5.1); Sodium 135 mEq/L (136-145); Troponin I < 0.03 ng/mL (< 0.04); eGFR For African Americans > 60 (> 60); eGFR For Non-African Americans > 60 (> 60)
[2020-05-25 15:27] LABS: VBG HCO3 30 mEq/L (21-27); VBG PCO2 43 mmHg (41-51); VBG PH 7.44 pH Units (7.32-7.42); VBG PO2 95 mmHg (25-50)
[2020-05-25] MEDS ORDERED: *HR* FentaNYL (PF) 100 MCG/2 ML VIAL IVP STA (18:24)
[2020-05-25] MEDS ORDERED: Ondansetron 4 MG/2 ML VIAL IVP ONE (18:24)
[2020-05-25] MEDS ORDERED: Vancomycin 2,000 MG/520 ML IV.SOLN IVPB ONE (18:58)
[2020-05-25] MEDS ORDERED: Piperacillin/Tazobactam 3.375 GM in 0.9 % Sodium Chloride Mini Bag 100 ML IVPB ONE (18:58)
[2020-05-25] MEDS ORDERED: Ondansetron ODT 4 MG TAB.RAPDIS SL PRN (20:37)
[2020-05-25] MEDS ORDERED: Naloxone 0.4 MG/ML INJ IVP PRN (20:37)
[2020-05-25] MEDS ORDERED: D5% in Water 1,000 ML IVC PRN (20:54)
[2020-05-25] MEDS ORDERED: *HR* Dextrose 50 % in Water (Vial) 50 ML VIAL IVP PRN (20:54)
[2020-05-25] MEDS ORDERED: Dextrose Gel 15 GM/37.5 ML TUBE PO PRN ×2 (20:54)
[2020-05-25 21:23] LABS: Bilirubin,Urine Negative (Negative); Blood,Urine Negative (Negative); Clarity,Urine Clear (Clear); Color,Urine Colorless (Yellow); Glucose,Urine (UA) Normal (Normal); Ketones,Urine Negative (Negative); Leukocyte Esterase,Urine Negative (Negative); Nitrite,Urine Negative (Negative); PH,Urine 7.5 pH Units (5.0-8.0); Protein,Urine Negative (Neg-Trace); Specific Gravity,Urine 1.011 (1.010-1.025); Urobilinogen,Urine Normal (Normal)
[2020-05-25] MEDS ORDERED: *HR* Heparin 5,000 UNIT/ML VIAL SQ SCH (22:00)
[2020-05-25] MEDS ORDERED: *HR* Metoprolol 5 MG/5 ML VIAL IVP ONE (23:07)
[2020-05-25] MEDS: 0.9 % Sodium Chloride 1,000 ML IVC SCH (23:11)
[2020-05-25] MEDS ORDERED: *HR* Heparin 5,000 UNIT/ML VIAL IVP PRN ×2 (23:42)
[2020-05-25] MEDS ORDERED: *HR* Heparin 5,000 UNIT/ML VIAL IVP ONE (23:42)
[2020-05-25] MEDS ORDERED: Perflutren Lipid Microsphere 1.3 ML in 0.9 % Sodium Chloride 8.7 ML IVP PRN (23:53)
[2020-05-25] MEDS: Insulin LISPRO 300 UNITS/3 ML VIAL SQ SCH (23:54)
[2020-05-25] MEDS: Acetaminophen 325 MG TABLET PO PRN (23:57)
[2020-05-26] MEDS: Heparin 25,000UNIT/250ML 1/2NS 25,000 UNIT/250 ML IV.SOLN IVC SCH ×2 (00:50→19:06)
[2020-05-26 00:54] LABS: INR 1.3; Prothrombin Time 15.4 Seconds (9.4-12.1)
[2020-05-26 01:05] LABS: Alanine Aminotransferase 17 Units/L (7-52); Albumin 4.1 g/dL (3.5-5.7); Albumin/Globulin Ratio 1.5 (1.1-2.2); Alkaline Phosphatase 53 Units/L (34-104); Aspartate Amino Transferase 14 Units/L (13-39); BUN/Creatinine Ratio 16 (6-26); Blood Urea Nitrogen 17 mg/dL (6-20); Calcium 8.7 mg/dL (8.6-10.3); Carbon Dioxide 29 mEq/L (23-29); Chloride 95 mEq/L (98-107); Cholesterol 79 mg/dL (< 200); Globulin 2.8 g/dL (2.4-3.5); Glucose 123 mg/dL (70-105); HDL Cholesterol 39 mg/dL (40-59); LDL Cholesterol,Calculated 26 mg/dL (< 100); Magnesium 1.7 mg/dL (1.6-2.6); Osmolality,Calculated 277 (280-300); Phosphorous 3.4 mg/dL (2.7-4.5); Potassium 4.1 mEq/L (3.5-5.1); Sodium 132 mEq/L (136-145); Total Protein 6.9 g/dL (6.4-8.9); Triglycerides 68 mg/dL (< 150); eGFR For African Americans > 60 (> 60); eGFR For Non-African Americans > 60 (> 60)
[2020-05-26] MEDS: Piperacillin/Tazobactam 3.375 GM in 0.9 % Sodium Chloride Mini Bag 100 ML IVPB SCH ×3 (02:31→17:05)
[2020-05-26] MEDS ORDERED: ALPRAZolam 1 MG TABLET PO ONE (02:40)
[2020-05-26] MEDS: Vancomycin 1,750 MG/517.5 ML IV.SOLN IVPB SCH ×2 (05:50→17:04)
[2020-05-26 07:40] LABS: Estimated Average Glucose 174 mg/dl
[2020-05-26 07:52] LABS: Basophils # 0.1 K/mcL (0.0-0.2); Basophils % 0.2 %; Hematocrit 39.9 % (37.5-50.1); Lymphocytes # 2.1 K/mcL (0.6-4.6); Lymphocytes % 8.9 %; Mean Corpuscular HGB Conc 31.8 g/dL (31.6-35.5); Mean Corpuscular Hemoglobin 27.8 pg (28.0-33.3); Mean Corpuscular Volume 87.3 fL (83.0-100.0); Mean Platelet Volume 12.2 fL (9.4-12.4); Monocytes # 1.1 K/mcL (0.0-1.3); Monocytes % 4.8 %; Neutrophils # 20.2 K/mcL (1.6-8.9); Platelet Count 137 K/mcL (140-400); Red Blood Count 4.57 M/mcL (4.19-5.50); Red Cell Distribution Width 14.2 % (11.5-14.5); Segmented Neutrophils % 85.1 %; White Blood Count 23.8 K/mcL (4.3-11.1)
[2020-05-26 07:53] LABS: Hemoglobin 12.7 g/dL (12.9-16.9)
[2020-05-26] MEDS: Insulin LISPRO 300 UNITS/3 ML VIAL SQ SCH ×3 (08:20→17:03)
[2020-05-26] MEDS: 0.9 % Sodium Chloride 1,000 ML IVC SCH (09:56)
[2020-05-26] MEDS: Acetaminophen 325 MG TABLET PO PRN (10:00)
[2020-05-26] MEDS: Ketorolac 30 MG/ML VIAL IVP SCH ×3 (12:59→23:45)
[2020-05-26 14:07] LABS: Adenovirus Not Detected (Not Detect); Bordetella Pertussis Not Detected (Not Detect); Chlamydophila pneumoniae Not Detected (Not Detect); Coronavirus 229E Not Detected (Not Detect); Coronavirus HKU1 Not Detected (Not Detect); Coronavirus NL63 Not Detected (Not Detect); Coronavirus OC43 Not Detected (Not Detect); Human Metapneumovirus Not Detected (Not Detect); Human Rhinovirus/Enterovirus Not Detected (Not Detect); Influenza A Subtype 2009 H1 Not Detected (Not Detect); Influenza B Not Detected (Not Detect); Mycoplasma pneumoniae Not Detected (Not Detect); Parainfluenza Virus 1 Not Detected (Not Detect); Parainfluenza Virus 2 Not Detected (Not Detect); Parainfluenza Virus 3 Not Detected (Not Detect); Parainfluenza Virus 4 Not Detected (Not Detect); Respiratory Syncytial Virus Not Detected (Not Detect); SARS-CoV-2 Not Detected (Not Detect)
[2020-05-26] MEDS ORDERED: Nicotine 7 MG PATCH.TD24 TD PRN (15:23)
[2020-05-26] MEDS: cloNIDine HCL 0.1 MG TABLET PO SCH (20:06)
[2020-05-27] MEDS: Piperacillin/Tazobactam 3.375 GM in 0.9 % Sodium Chloride Mini Bag 100 ML IVPB SCH ×3 (04:02→18:40)
[2020-05-27] MEDS: Ketorolac 30 MG/ML VIAL IVP SCH ×4 (05:36→23:29)
[2020-05-27 06:36] LABS: Basophils # 0.1 K/mcL (0.0-0.2); Basophils % 0.4 %; Eosinophils # 0.1 K/mcL (0.0-0.6); Eosinophils % 0.7 %; Hematocrit 39.6 % (37.5-50.1); Hemoglobin 12.3 g/dL (12.9-16.9); Immature Granulocytes % 1.1 % (0-4); Immature Platelets 8.9 % (1.1-6.1); Lymphocytes # 1.7 K/mcL (0.6-4.6); Lymphocytes % 12.9 %; Mean Corpuscular HGB Conc 31.1 g/dL (31.6-35.5); Mean Corpuscular Hemoglobin 27.4 pg (28.0-33.3); Mean Corpuscular Volume 88.2 fL (83.0-100.0); Mean Platelet Volume 11.9 fL (9.4-12.4); Monocytes # 0.9 K/mcL (0.0-1.3); Monocytes % 7.1 %; Neutrophils # 10.3 K/mcL (1.6-8.9); Platelet Count 128 K/mcL (140-400); Red Blood Count 4.49 M/mcL (4.19-5.50); Red Cell Distribution Width 14.5 % (11.5-14.5); Segmented Neutrophils % 77.8 %; White Blood Count 13.2 K/mcL (4.3-11.1)
[2020-05-27 06:50] LABS: Alanine Aminotransferase 13 Units/L (7-52); Albumin 3.6 g/dL (3.5-5.7); Albumin/Globulin Ratio 1.3 (1.1-2.2); Alkaline Phosphatase 49 Units/L (34-104); Aspartate Amino Transferase 11 Units/L (13-39); BUN/Creatinine Ratio 16 (6-26); Bilirubin,Total 0.5 mg/dL (0.3-1.0); Blood Urea Nitrogen 13 mg/dL (6-20); Calcium 8.1 mg/dL (8.6-10.3); Carbon Dioxide 27 mEq/L (23-29); Chloride 100 mEq/L (98-107); Globulin 2.7 g/dL (2.4-3.5); Glucose 113 mg/dL (70-105); Magnesium 1.9 mg/dL (1.6-2.6); Osmolality,Calculated 281 (280-300); Potassium 3.5 mEq/L (3.5-5.1); Sodium 135 mEq/L (136-145); Total Protein 6.3 g/dL (6.4-8.9); eGFR For African Americans > 60 (> 60); eGFR For Non-African Americans > 60 (> 60)
[2020-05-27] MEDS ORDERED: Vancomycin 1,250 MG/262.5 ML IV.SOLN IVPB SCH (07:30)
[2020-05-27] MEDS: Insulin LISPRO 300 UNITS/3 ML VIAL SQ SCH ×3 (07:47→16:56)
[2020-05-27] MEDS: Vancomycin 1,750 MG/517.5 ML IV.SOLN IVPB SCH (07:47)
[2020-05-27] MEDS: FLUoxetine 20 MG CAPSULE PO SCH (07:48)
[2020-05-27] MEDS: Metoprolol XL (24 HR) Succ 50 MG TAB.ER.24H PO SCH (07:48)
[2020-05-27] MEDS: cloNIDine HCL 0.1 MG TABLET PO SCH ×3 (07:48→21:06)
[2020-05-27] MEDS ORDERED: Vancomycin 2,000 MG/520 ML IV.SOLN IVPB ONE (08:00)
[2020-05-27] MEDS ORDERED: METOPROLOL SUCCINATE 200 MG PO SCH (09:00)
[2020-05-27] MEDS ORDERED: FLUoxetine 20 MG CAPSULE PO SCH (09:00)
[2020-05-27] MEDS: Heparin 25,000UNIT/250ML 1/2NS 25,000 UNIT/250 ML IV.SOLN IVC SCH (10:48)
[2020-05-27] MEDS: Vancomycin 1,250 MG/262.5 ML IV.SOLN IVPB SCH ×2 (16:55→23:30)
[2020-05-27] MEDS: Nystatin Cream 15 GM TUBE TP SCH (21:07)
[2020-05-27] MEDS: ALPRAZolam 1 MG TABLET PO PRN (21:08)
[2020-05-27] MEDS: Ipratropium/Albuterol Neb 3 ML IH PRN (23:37)
[2020-05-28] MEDS: Piperacillin/Tazobactam 3.375 GM in 0.9 % Sodium Chloride Mini Bag 100 ML IVPB SCH ×3 (01:51→17:45)
[2020-05-28] MEDS: Heparin 25,000UNIT/250ML 1/2NS 25,000 UNIT/250 ML IV.SOLN IVC SCH (01:53)
[2020-05-28 05:23] LABS: Hematocrit 38.8 % (37.5-50.1); Immature Platelets 10.3 % (1.1-6.1); Mean Corpuscular HGB Conc 30.9 g/dL (31.6-35.5); Mean Corpuscular Hemoglobin 27.5 pg (28.0-33.3); Mean Corpuscular Volume 88.8 fL (83.0-100.0); Mean Platelet Volume 11.9 fL (9.4-12.4); Red Blood Count 4.37 M/mcL (4.19-5.50); Red Cell Distribution Width 14.5 % (11.5-14.5); White Blood Count 9.3 K/mcL (4.3-11.1)
[2020-05-28 05:38] LABS: Alanine Aminotransferase 12 Units/L (7-52); Albumin 3.5 g/dL (3.5-5.7); Albumin/Globulin Ratio 1.3 (1.1-2.2); Alkaline Phosphatase 46 Units/L (34-104); Aspartate Amino Transferase 12 Units/L (13-39); BUN/Creatinine Ratio 8 (6-26); Bilirubin,Total 0.5 mg/dL (0.3-1.0); Blood Urea Nitrogen 9 mg/dL (6-20); Calcium 8.1 mg/dL (8.6-10.3); Carbon Dioxide 28 mEq/L (23-29); Chloride 104 mEq/L (98-107); Globulin 2.8 g/dL (2.4-3.5); Glucose 104 mg/dL (70-105); Osmolality,Calculated 285 (280-300); Potassium 3.3 mEq/L (3.5-5.1); Sodium 138 mEq/L (136-145); Total Protein 6.3 g/dL (6.4-8.9); eGFR For African Americans > 60 (> 60); eGFR For Non-African Americans > 60 (> 60)
[2020-05-28] MEDS: Ketorolac 30 MG/ML VIAL IVP SCH ×2 (05:58→12:25)
[2020-05-28] MEDS: Clindamycin 600 MG/50 ML 600 MG/50 ML IV.SOLN IVPB SCH ×2 (10:29→15:10)
[2020-05-28] MEDS: Vancomycin 1,250 MG/262.5 ML IV.SOLN IVPB SCH (10:29)
[2020-05-28] MEDS: Insulin LISPRO 300 UNITS/3 ML VIAL SQ SCH ×3 (10:33→17:45)
[2020-05-28] MEDS: FLUoxetine 20 MG CAPSULE PO SCH (10:33)
[2020-05-28] MEDS: Nystatin Cream 15 GM TUBE TP SCH ×3 (10:33→21:27)
[2020-05-28] MEDS: cloNIDine HCL 0.1 MG TABLET PO SCH ×3 (10:33→21:23)
[2020-05-28] MEDS: Metoprolol XL (24 HR) Succ 50 MG TAB.ER.24H PO SCH (10:33)
[2020-05-28] MEDS: ALPRAZolam 1 MG TABLET PO PRN (21:36)
[2020-05-28] MEDS ORDERED: Vancomycin 1,500 MG/265 ML IV.SOLN IVPB SCH (22:00)
[2020-05-29] MEDS: Piperacillin/Tazobactam 3.375 GM in 0.9 % Sodium Chloride Mini Bag 100 ML IVPB SCH ×3 (03:44→17:39)
[2020-05-29] MEDS: Clindamycin 600 MG/50 ML 600 MG/50 ML IV.SOLN IVPB SCH ×4 (03:44→23:27)
[2020-05-29 05:22] LABS: Hematocrit 39.2 % (37.5-50.1); Hemoglobin 12.2 g/dL (12.9-16.9); Mean Corpuscular HGB Conc 31.1 g/dL (31.6-35.5); Mean Corpuscular Hemoglobin 27.6 pg (28.0-33.3); Mean Corpuscular Volume 88.7 fL (83.0-100.0); Mean Platelet Volume 11.3 fL (9.4-12.4); Platelet Count 157 K/mcL (140-400); Red Blood Count 4.42 M/mcL (4.19-5.50); Red Cell Distribution Width 14.3 % (11.5-14.5); White Blood Count 9.7 K/mcL (4.3-11.1)
[2020-05-29] MEDS: *HR* Enoxaparin 40 MG/0.4 ML SYRINGE SQ SCH (05:31)
[2020-05-29 05:40] LABS: BUN/Creatinine Ratio 9 (6-26); Blood Urea Nitrogen 12 mg/dL (6-20); Calcium 8.9 mg/dL (8.6-10.3); Carbon Dioxide 28 mEq/L (23-29); Chloride 103 mEq/L (98-107); Glucose 127 mg/dL (70-105); Magnesium 2.1 mg/dL (1.6-2.6); Osmolality,Calculated 287 (280-300); Potassium 3.6 mEq/L (3.5-5.1); Sodium 138 mEq/L (136-145); eGFR For African Americans > 60 (> 60); eGFR For Non-African Americans 57 (> 60)
[2020-05-29] MEDS: Insulin LISPRO 300 UNITS/3 ML VIAL SQ SCH ×3 (07:42→17:42)
[2020-05-29] MEDS: cloNIDine HCL 0.1 MG TABLET PO SCH ×3 (07:43→21:16)
[2020-05-29] MEDS: FLUoxetine 20 MG CAPSULE PO SCH (07:43)
[2020-05-29] MEDS: Metoprolol XL (24 HR) Succ 50 MG TAB.ER.24H PO SCH (07:43)
[2020-05-29] MEDS: Nystatin Cream 15 GM TUBE TP SCH ×3 (07:44→21:16)
[2020-05-29] MEDS ORDERED: Mag Hydrox/Al Hydrox/Simeth 30 ML UDC PO PRN (10:23)
[2020-05-29] MEDS ORDERED: Vancomycin 1,250 MG/262.5 ML IV.SOLN IVPB SCH (12:00)
[2020-05-29] MEDS: Ipratropium/Albuterol Neb 3 ML IH PRN (15:55)
[2020-05-29 18:34] LABS: ABG Base Excess 5 mEq/L (-2 to 3); ABG HCO3 30 mEq/L (21-27); ABG Oxygen Saturation 95 % (95-98); ABG PCO2 43 mmHg (35-45); ABG PH 7.45 pH Units (7.32-7.45); ABG PO2 73 mmHg (85-104); ABG TCO2 31 mEq/L (20-26)
[2020-05-30] MEDS: Piperacillin/Tazobactam 3.375 GM in 0.9 % Sodium Chloride Mini Bag 100 ML IVPB SCH ×2 (02:56→09:31)
[2020-05-30] MEDS: *HR* Enoxaparin 40 MG/0.4 ML SYRINGE SQ SCH (05:16)
[2020-05-30 05:23] LABS: Hematocrit 41.8 % (37.5-50.1); Hemoglobin 13.4 g/dL (12.9-16.9); Mean Corpuscular HGB Conc 32.1 g/dL (31.6-35.5); Mean Corpuscular Hemoglobin 28.2 pg (28.0-33.3); Mean Platelet Volume 10.9 fL (9.4-12.4); Platelet Count 169 K/mcL (140-400); Red Blood Count 4.75 M/mcL (4.19-5.50); Red Cell Distribution Width 14.2 % (11.5-14.5); White Blood Count 11.3 K/mcL (4.3-11.1)
[2020-05-30 07:00] LABS: Potassium 3.5 mEq/L (3.5-5.1)
[2020-05-30 07:01] LABS: Albumin 3.9 g/dL (3.5-5.7); Albumin/Globulin Ratio 1.3 (1.1-2.2); Bilirubin,Total 0.6 mg/dL (0.3-1.0); Calcium 9.2 mg/dL (8.6-10.3); Globulin 3.1 g/dL (2.4-3.5)
[2020-05-30] MEDS: Insulin LISPRO 300 UNITS/3 ML VIAL SQ SCH ×2 (08:38→13:30)
[2020-05-30] MEDS: Clindamycin 600 MG/50 ML 600 MG/50 ML IV.SOLN IVPB SCH (08:48)
[2020-05-30] MEDS: Metoprolol XL (24 HR) Succ 50 MG TAB.ER.24H PO SCH (08:49)
[2020-05-30] MEDS: cloNIDine HCL 0.1 MG TABLET PO SCH (08:50)
[2020-05-30] MEDS: FLUoxetine 20 MG CAPSULE PO SCH (08:50)
[2020-05-30] MEDS ORDERED: amLODIPine 5 MG TABLET PO SCH (09:00)
[2020-05-30] MEDS: Nystatin Cream 15 GM TUBE TP SCH (09:05)
[2020-05-30 11:39] VITALS: BP 167/97
== END 2020-05-30 13:39 | disposition home or self-care (01) | DRG 720 ==
LOC: 3ANU 13:20 → EMEROOARM 13:20 → SUATTDRO 20:23 → 3ANU 22:08 → SUATTDRO 05-27 15:31
PROVIDERS: ADMIT Student in an Organized Health Care Education/Training Program; ATTEND Internal Medicine